=== PATIENT | female | born 1990 | race Caucasian/White ===

== ENCOUNTER 2025-02-14 18:27 | Emergency (ER) | payer BC, MEDICAID ==
[~2025-02-14] VITALS: Ht 167.6 cm; Wt 56.7 kg
[2025-02-14 18:46] VITALS: BP 116/66; PULSE 92; O2SAT 99
--- NOTE | 2025-02-14 18:53 | Physician Documentation ---
History of Present Illness ~ Chief Complaint: Sore Throat Stated Complaint: SORE THROAT Time Seen by MD: 20:55 Primary Medical Doctor: NONE HPI This is a 34-year-old female who presents with left-sided sore throat, patient reports history of tonsillar abscess. Patient presents to the emergency room with sore throat that began last night. She says it has gotten so painful that she has a unable to take her pain medications for this. History of peritonsillar abscess. No cough. No fever. Medication Reconciliation Allergies: Coded Allergies: Antihistamines - Alkylamine (Verified Allergy, Unknown, hives, 02/14/25) Past Medical History Past Medical History: Asthma, UTI, *DERMATOLOGY* Past Surgical History: Alcohol Use: None Drug Use: none Lives In: Home Review of Systems ROS All review of systems negative except as per HPI Physical Exam Vital Signs: Temperature: 97.6, Source: Temporal, Heart Rate: 92, Respiratory Rate: 15, BP: 116/66, Pulse Oximetry: 99, Weight: 56.700 Physical Exam General: Patient is awake, alert, oriented x4 in no acute distress and well appearing.~ Head: Normocephalic and atraumatic. Eyes: Conjunctival normal. EOMI. PERRL. ENT: Mucous membranes moist. Erythema noted in posterior pharynx with no exudates or asymmetry. Mild left-sided lymphadenopathy. Speaking clearly maintaining secretions Neck: Supple, trachea is midline. Chest: Clear to auscultation bilaterally without rales, rhonchi, or wheezes. There is no accessory muscle use or retractions. Cardiac: RRR without murmurs, gallops, or rubs. Progress Results/Orders Results/Orders Orders - CAMILO CALDERON MD Cult Throat + R/O Beta Strep (02/14/25 21:55) Completed Orders - CAMILO CALDERON MD Strep A Rapid (02/14/25 21:02) Ketorolac Trometh 15mg/Ml Vial (Toradol (02/14/25 21:05) Medications Received in ER Medications (Trade) Dose Ordered Sig/Eliazar Route PRN Reason Start Time Stop Time Status Last Admin Dose Admin (Toradol injection) 30 mg ONCE ONCE IM 02/14/25 21:05 02/14/25 21:06 DC 02/14/25 21:20 30 MG Vital Signs 02/14/25 02/14/25 02/14/25 18:46 21:11 21:20 Temp 97.6 97.6 Pulse 92 Resp 15 16 B/P (MAP) 116/66 Pulse Ox 99 Laboratory Tests Test 02/14/25 21:25 Group A Streptococcus Rapid Negative Medical Decision Making Findings Patient presented to the emergency room with a sore throat. Differentials include but are not limited to viral pharyngitis, strep throat, retropharyngeal abscess, peritonsillar abscess. Physical exam is reassuring for no abscess. Strep test is negative. Symptomatic treatment only discussed. Departure Disposition: HOME / SELF CARE / HOMELESS Impression: Primary Impression: Acute pharyngitis Condition: Stable Discharge Instructions: Pharyngitis Additional Instructions: I will call you if the strep test is positive otherwise it is pain control. Ibuprofen and Tylenol as discussed and saltwater gargles can be very soothing. Sptn-yoz-tnquuul remedies such as lozenges can also be of benefit. Referrals: NO PRIMARY CARE PROVIDER (PCP) Education Educated: Patient Educated regarding: diagnosis, need for follow up Signature Scribe Signature: No scribe Attestation: The note accurately reflects work and decisions made by me.Camilo Calderon MD 02/14/25 21:07 FLACA ESPINOZA February 14, 2025 18:53 CAMILO CALDERON MD February 14, 2025 21:07
[2025-02-14 21:11] VITALS: TEMP 97.6
[2025-02-14 21:20] VITALS: RESP 16
[2025-02-14] MEDS: ketorolac trometh 15mg/ml vial 15 MG/ML ML IM ONE (21:20)
[2025-02-14 21:55] LABS: STREP A SCREEN NEGATIVE (Neg)
== END 2025-02-14 21:27 | disposition home or self-care (01) ==
LOC: ER 18:28
DX: J02.9 Acute pharyngitis, unspecified (principal); J45.909 Unspecified asthma, uncomplicated
CPT/HCPCS: 87081; 87880; 96372; 99283; J1885